=== PATIENT | male | born 1965 | race Two or more races ===

== ENCOUNTER 2020-11-29 07:59 | Day surgery (SDC) | payer OTHER ==
[~2020-11-29] VITALS: Ht 170.2 cm; Wt 70.5 kg
[~2020-11-29 07:59] MED LIST: NORCO 5-325 TA1 EACH PO
--- NOTE | 2020-11-29 09:21 | NUR ---
11/29/20 0921 Sirisha Nam 0917 PATIENT ARRIVES TO PACU SLEEPING, AWAKENS WITH VERBAL STIMULI, BACK TO SLEEP WHEN NOT STIMULATED. RESP EVEN AND UNLABORED, OXYGEN TURNED OFF ON ARRIVAL TO PACU. ROOM AIR SATS >95%.
--- NOTE | 2020-11-29 12:12 | OR ---
[facility] [address] [place], [place] [address] Signed DATE OF OPERATION: 11/29/2020 SURGEON: Christal Michael MD PREOPERATIVE DIAGNOSES: 1. History of Fontenot's esophagus, status post Hill posterior gastropexy, 2007. 2. Episode of flank pain in August (now resolved). POSTOPERATIVE DIAGNOSES: 1. Fontenot's esophagus from 28 to 38 cm. No evidence of stricture, nodularity, or neoplasm. 2. Intact optimal flap valve status post Hill repair. PROCEDURE: Esophagogastroduodenoscopy with biopsy. ANESTHESIA: Intravenous sedation, fentanyl 100 mcg and Versed 3 mg. INDICATION: This 55-year-old [place] man is well known to me from the past and a patient of Dr. Ambrose. He had intractable reflux and Ofntenot's esophagus and underwent Hill posterior gastropexy by me 13 years ago. He has had no reflux problem since that time. In August, he had an episode of rather significant interscapular and flank pain, which was quite problematic to him. He did take a PPI for a short period which may or may not have helped him. He has no associated dysphagia and no symptoms currently. It is noted that he did have Fontenot's esophagus in the past and on that basis alone, upper endoscopy is indicated for surveillance and also to characterize the symptoms he had in August. The risks of bleeding, infection, and perforation related to upper endoscopy reviewed with him. He understands and wished to proceed. FINDINGS: The flap valve was optimal. There was no evidence of hiatal hernia whatsoever. The stomach and duodenum appeared normal. CLOtest was negative 15 minutes postprocedure. He did have indeed obvious Fontenot's esophagus extending from 28 cm from the incisors to approximately 38 cm from the incisors. Multiple biopsies were obtained there. There was no sign of nodularity to Fontenot's segment. More proximal esophagus was normal in appearance. DESCRIPTION OF PROCEDURE: Electronically Signed By: CHRISTAL MICHAEL MD 11/29/20 1212 PATIENT NAME: TANO LEE OPERATIVE REPORT DATE OF : 63 REPORT #: [id number] PHYSICIAN: CHRISTAL MICHAEL MD PCP: MITCHELL AMBROSE MD REPORT IS CONFIDENTIAL AND NOT TO BE RELEASED WITHOUT AUTHORIZATION [facility] [address] [place], [place] [address] Signed The patient was brought to the endoscopy suite and placed in lateral decubitus position. Given intravenous sedation to the point of slurred speech and nystagmus, topical lidocaine hypopharyngeal anesthesia has been administered. A bite block was placed. An Olympus video upper endoscope was passed in the hypopharynx. The vocal cords appeared normal. The scope was advanced to the esophagus. It appeared entirely normal until approximately 28 cm from the incisors where obvious transition to Fontenot's esophagus was noted. The scope was passed beyond the GE junction into the stomach. The rugal folds were normal. Antral motility was normal. Pylorus was normal. Scope was passed through into the duodenum, which was normal. Biopsies were taken of the duodenum. The scope was withdrawn and biopsies then taken of the antrum for both RAMOAN and pathologic testing. Retroflexed view was undertaken showing optimal flap valve following Hill posterior gastropexy. The scope was straightened withdrawn. A biopsy was then taken of the segment of Fontenot's at varying length throughout the segment. None of the areas appeared particular problematic that clearly represent Fontenot's epithelium. The scope was withdrawn and remaining esophagus was normal. The patient was taken to the recovery room in good condition. CONCLUDING DIAGNOSIS: Fontenot's esophagus 28-38 cm without sign of abnormality otherwise. Optimal flap valve. No clinical reflux. PLAN: We will check his pathology report and review a strategy for surveillance going forward, specifically to assess for dysplasia, which is unlikely. He is not taking any PPI medication now nor would I recommend that he do so. MD LEVON Palmer/MODL /[id number] cc: Mitchell Ambrose MD Copies: MITCHELL AMBROSE MD Electronically Signed By: CHRISTAL MICHAEL MD 11/29/20 121 PATIENT NAME: TANO LEE OPERATIVE REPORT DATE OF : 63 REPORT #: [id number] PHYSICIAN: CHRISTAL MICHAEL MD PCP: MITCHELL AMBROSE MD REPORT IS CONFIDENTIAL AND NOT TO BE RELEASED WITHOUT AUTHORIZATION [facility] [address] [place] [address] Signed ~ Electronically Signed By: CHRISTAL MICHAEL MD 11/29/20 1212 PATIENT NAME: TANO LEE EGNAR OPERATIVE REPORT DATE OF : 63 REPORT #: [id number] PHYSICIAN: CHRISTAL MICHAEL MD PCP: MITCHELL AMBROSE MD REPORT IS CONFIDENTIAL AND NOT TO BE RELEASED WITHOUT AUTHORIZATION
--- NOTE | 2020-12-02 17:43 | PATH ---
[facility] [address] [place], [place] [address] Signed SPECIMEN(S): A DUODENAL BIOPSY SPECIMEN(S): B ANTRUM/PYLORUS BIOPSY SPECIMEN(S): C LOWER ESOPHAGEAL BIOPSY SPECIMEN SOURCE: A. DUODENAL BIOPSY B. ANTRUM/PYLORUS BIOPSY C. LOWER ESOPHAGEAL BIOPSY CLINICAL HISTORY: Esophagogastroduodenoscopy. History of hiatal hernia, Fontenot's esophagus, Hill repair in 2007. Postop Dx: Fontenot's esophagus, 26-34 cm. MICROSCOPIC DESCRIPTION: Histologic sections of all submitted blocks are examined by light microscopy. These findings, together with the gross examination, support the pathologic diagnosis. FINAL PATHOLOGIC DIAGNOSIS: A. Duodenum, biopsy: - Duodenal mucosa with mild peptic injury. B. Stomach, antrum/pylorus, biopsy: - Gastric oxyntic mucosa with no significant pathologic changes. - Negative for Helicobacter pylori with HE stains. C. Esophagus, lower, biopsy: - Inflamed glandular mucosa with intestinal metaplasia; no dysplasia identified. BRP:caw:C2NR GROSS DESCRIPTION: Three specimens are received in three containers, labeled "MT." A. The specimen, labeled "MT, duodenal biopsy," is received in formalin and consists of two fox soft tissue fragments that measure 0.1-0.2 cm in greatest dimension. The specimen is entirely submitted in cassette (A1). B. The specimen, labeled "MT, antrum biopsy," is received in formalin and consists of one fox soft tissue fragment that measures 0.2 cm in greatest dimension. The specimen is entirely submitted in cassette (B1). C. The specimen, labeled "MT, lower esophagus biopsy," is received in formalin and consists of five fox soft tissue fragments that measure 0.1-0.2 cm in greatest dimension. The specimen is entirely PATIENT NAME: TANO LEE PATHOLOGY DATE OF : 63 REPORT #: [id number] PHYSICIAN: GREG PATHOLOGY PCP: MITCHELL SHIN MD REPORT IS CONFIDENTIAL AND NOT TO BE RELEASED WITHOUT AUTHORIZATION [facility] [address] [place], [place] [address] Signed submitted in cassette (C1). JS (under the direct supervision of a pathologist) The Gross Description was prepared using a voice recognition system. The report was reviewed for accuracy; however, sound-alike word errors, addition and/or deletions may occur. If there is any question about this report, please contact Client Services. PERFORMING LABORATORY: The technical component was performed by [employer] [address] (Supplier Diversity Director: Amy Chaudhry MD; CLIA# [id number]). Professional interpretation was performed by [facility], [address] [address] (CLIA# [id number]). Diagnostician: Margarito Ornelas MD Pathologist Electronically Signed 12/02/2020 Copies: ~ PATIENT NAME: TANO LEE PATHOLOGY DATE OF : 63 REPORT #: [id number] PHYSICIAN: GREG PAULSON PCP: MITCHELL SHIN MD REPORT IS CONFIDENTIAL AND NOT TO BE RELEASED WITHOUT AUTHORIZATION
== END 2020-11-29 10:00 | disposition home or self-care (01) ==
LOC: OPS 07:59 → DS 08:03 → OPS 08:45 → DS 08:45 → OPS 10:00
PROVIDERS: ATTEND Surgery
PROC: 0DB98ZZ Excision of Duodenum, Via Natural or Artificial Opening Endoscopic (ICD-10-PCS; principal; 2020-11-29 08:45)
DX: K22.70 Barrett's esophagus without dysplasia (principal); Z98.890 Other specified postprocedural states; K20.90 Esophagitis, unspecified without bleeding
CPT/HCPCS: 99153; G0500; J2250; J3010; J7121

== ENCOUNTER 2022-01-13 13:01 | Day surgery (SDC) | payer OTHER ==
[~2022-01-13] VITALS: Ht 170.2 cm; Wt 71.5 kg
--- NOTE | ~2022-01-13 | OR ---
[facility] [address] [place], [place] [address] Draft DATE OF OPERATION: 01/13/2022 SURGEON: Christal Michael MD PREOPERATIVE DIAGNOSIS: Colon screening. POSTOPERATIVE DIAGNOSES: 1. Sigmoid polyp (excised). 2. External hemorrhoidal changes. PROCEDURE: Total colonoscopy to cecum with cold snare polypectomy x1 with application of hemoclip. ANESTHESIA: Intravenous sedation. Fentanyl 100 mcg and Versed 6 mg. INDICATION: This is a 56-year-old man is a patient of Dr. Yolette Castellanos well known to me from the past. He underwent Hill repair for intractable gastroesophageal reflux in 2007. He had colonoscopy about that time as well, which was normal. He is here for a screening colonoscopy. He understands the risks of bleeding, infection, and perforation. He has no symptoms of bleeding, diarrhea, or constipation and no known family history of colon cancer. Notably, he does have what he perceives as possible external hemorrhoidal nodularity and wishes that to be evaluated as well. FINDINGS: External anorectal examination showed moderately enlarged external hemorrhoid. There was no sign of thrombosis. No sign of neoplasm in any way. The remaining colon was well prepped and a sessile polyp at 15 cm was noted, which was excised with cold snare polypectomy technique. Application of hemoclips was applied as well. DESCRIPTION OF PROCEDURE: The patient was brought to the endoscopy suite and placed in lateral decubitus position given intravenous sedation to the point of slurred speech and nystagmus. Digital rectal examination and inspection showed external hemorrhoidal change. An Olympus video colonoscope was passed in the rectum and manipulated throughout the colon ultimately intubating the cecum itself. The ileocecal valve and appendiceal orifice were normal. The scope was withdrawn from that point. Examination throughout showed no sign of abnormality until approximately 15-20 cm from the anal verge, where a sessile polyp was PATIENT NAME: TANO SUERO OPERATIVE REPORT DATE OF : 63 REPORT #: [id number] PHYSICIAN: CHRISTAL MICHAEL MD PCP: YOLETTE CASTELLANOS MD REPORT IS CONFIDENTIAL AND NOT TO BE RELEASED WITHOUT AUTHORIZATION [facility] [address] [place], [place] [address] Draft noted. This was excised with cold snare technique. Application of hemoclip for hemostasis was undertaken. The scope was further withdrawn. Retroflexed view was normal. Scope was removed. Reinspection of the anorectum showed external hemorrhoidal change. No sign of thrombosis. No sign of worrisome neoplasm in any way. PLAN: We would recommend repeat colonoscopy in three years based on the polyp if it is proved to be adenoma. If hyperplastic, can go longer of course. As regards external hemorrhoidal disease, if he wishes external hemorrhoidal excision could be undertaken. MD LEVON Palmer/ZACK /[id number] cc: Yolette Castellanos MD Copies: YOLETTE CASTELLANOS DMD ~ PATIENT NAME: ROSA ZHUQUETANO [address] OPERATIVE REPORT DATE OF : 63 REPORT #: [id number] PHYSICIAN: CHRISTAL MICHAEL MD PCP: YOLETTE CASTELLANOS MD REPORT IS CONFIDENTIAL AND NOT TO BE RELEASED WITHOUT AUTHORIZATION
[~2022-01-13 13:01] MED LIST changes: +DICLOFENAC SOD100 MG PO; +OMEGA 3 1,0001 EACH PO; +OMEPRAZOLE20 MG PO; +VITAMIN D21250 MCG PO
--- NOTE | 2022-01-13 14:53 | NUR ---
01/13/22 1453 Sheets,Janie 1449 PT ARRIVED TO PACU ON 2L NC, PT ASLEEP AND SMALL AMOUNT OF SNORING NOTED.
--- NOTE | 2022-01-14 10:53 | PATH ---
[facility] [address] [place], [place] [address] Signed SPECIMEN(S): A SIGMOID POLYP AT 15 CM SPECIMEN SOURCE: A. SIGMOID POLYP AT 15 CM CLINICAL HISTORY: Pre: Screening colonoscopy. Post: Sigmoid polyp, external hemorrhoid. FINAL PATHOLOGIC DIAGNOSIS: Colon, sigmoid at 15 cm, polypectomy: - Tubular adenoma. BRP:cml:C2NR MICROSCOPIC EXAMINATION: Histologic sections of all submitted blocks are examined by light microscopy. These findings, together with the gross examination, support the pathologic diagnosis. GROSS DESCRIPTION: The specimen, labeled "MT, 1," and designated on the requisition "sigmoid polypectomy at 15 cm," is received in formalin and consists of one pink to red-brown, polypoid piece of tissue (0.7 cm in greatest dimension). The specimen is submitted entirely in cassette (A1). AC (under the direct supervision of a pathologist) The Gross Description was prepared using a voice recognition system. The report was reviewed for accuracy; however, sound-alike word errors, addition and/or deletions may occur. If there is any question about this report, please contact Client Services. PERFORMING LABORATORY: The technical component was performed by [facility], [address] [place] [address] (CLIA# [id number]). [facility], [address] [address] (CLIA# [id number]). Diagnostician: Margarito Ornelas MD Pathologist Electronically Signed 01/14/2022 PATIENT NAME: TANO SUERO PATHOLOGY DATE OF : 63 REPORT #: [id number] PHYSICIAN: GREG PATHOLOGY PCP: YOLETTE CASTELLANOS MD REPORT IS CONFIDENTIAL AND NOT TO BE RELEASED WITHOUT AUTHORIZATION [address] [address] Signed Copies: ~ PATIENT NAME: TANO SUERO PATHOLOGY DATE OF : 63 REPORT #: [id number] PHYSICIAN: [facility] PCP: YOLETTE CASTELLANOS MD REPORT IS CONFIDENTIAL AND NOT TO BE RELEASED WITHOUT AUTHORIZATION
== END 2022-01-13 15:44 | disposition home or self-care (01) ==
LOC: OPS 13:01 → DS 13:09 → OPS 14:00
PROVIDERS: ATTEND Surgery
PROC: 0DBN8ZX Excision of Sigmoid Colon, Via Natural or Artificial Opening Endoscopic, Diagnostic (ICD-10-PCS; principal; 2022-01-13 14:00)
DX: Z12.11 Encounter for screening for malignant neoplasm of colon (principal); D12.5 Benign neoplasm of sigmoid colon; K44.9 Diaphragmatic hernia without obstruction or gangrene; Z87.19 Personal history of other diseases of the digestive system
CPT/HCPCS: J2250; J3010; J7121

== ENCOUNTER 2025-04-06 07:00 | Day surgery (SDC) | payer OTHER ==
[~2025-04-06] VITALS: Ht 170.2 cm; Wt 73.0 kg
--- NOTE | ~2025-04-06 | OR ---
[facility] [address] [place], [place] [address] Draft DATE OF OPERATION: 04/06/2025 SURGEON: Christal Michael MD PREOPERATIVE DIAGNOSES: 1. History of Fontenot's esophagus. 2. History of Hill posterior gastropexy in 2007. 3. History of tubular adenoma, right colon 2021. POSTOPERATIVE DIAGNOSES: 1. Fontenot's esophagus extending from 28 cm to 34 cm. 2. Intact flap valve. 3. Normal-appearing colon. PROCEDURES: 1. Esophagogastroduodenoscopy with biopsy. 2. Total colonoscopy to cecum. ANESTHESIA: Intravenous sedation fentanyl 150 mcg and Versed 6 mg. INDICATION: This 59-year-old man is a patient of Dr. Yolette Castellanos. He is known to me from the past having been diagnosed with Fontenot's epithelium in 2007 and subsequent performance of anti-reflux operation of Hill posterior gastropexy (reconstruction of GE junction with posterior gastropexy and intraoperative manometrics). He last underwent upper endoscopy in 2007. He currently has no symptoms of dysphagia, reflux, or other abnormality. Additionally, he underwent colonoscopy in 2021 confirming a tubular adenoma. He has no family history of colon or esophageal cancer that he knows of. He is admitted at this time to undergo upper endoscopy and colonoscopy. He understands the risk of bleeding, infection, and perforation. FINDINGS: Upper endoscopy confirmed Fontenot's epithelium extending from approximately 28 to 38 cm. There is no evidence of neoplastic change, stricture, or other issue. The flap valve from prior reconstruction was fully intact. Stomach and duodenum were normal. CLOtest was negative. PATIENT NAME: TANO SUERO OPERATIVE REPORT DATE OF : 63 REPORT #: [id number] PHYSICIAN: CHRISTAL MICHAEL MD PCP: YOLETTE CASTELLANOS MD REPORT IS CONFIDENTIAL AND NOT TO BE RELEASED WITHOUT AUTHORIZATION [facility] [address] [place], [place] [address] Draft On colonoscopy, the prep was good. Complete colonoscopy was under to cecum which was normal. DESCRIPTION OF PROCEDURE: The patient was brought to the endoscopy suite and given topical lidocaine hypopharyngeal anesthesia, placed in lateral decubitus position. He was given intravenous sedation to the point of slurred speech and nystagmus with full cardiopulmonary monitoring. A bite block was placed. An Olympus video upper endoscope was passed in the hypopharynx. Vocal cords appeared normal. Scope was advanced to the esophagus without problem throughout its length that appeared normal though the distal portion, did show Fontenot's epithelium. Scope was passed in the stomach which was insufflated with air. Rugal folds were normal. Antral motility was normal. The pylorus was normal. The scope was passed through the pylorus into the duodenum, which was normal. Biopsies were taken of the duodenum and subsequently scope was withdrawn and biopsies taken of the antrum for both RAMONA and pathologic testing. Retroflexed view was undertaken showing an intact flap valve from previous reconstruction. The scope was withdrawn and multiple biopsies were taken of the distal esophagus. More proximal portion showing normal mucosa was at 28 cm. This area was biopsied as well. Further withdrawal of scope showed no other abnormality. Plans were then made for colonoscopy. Digital rectal examination was normal including the prostate. An Olympus video colonoscope was passed in the rectum and manipulated throughout the colon ultimately intubating the cecum itself. The ileocecal valve and appendiceal orifice were normal. The scope was withdrawn from that point. Examination showed no sign of abnormality specifically no polyps, diverticular formation, colitis, or cancer. Retroflexed view was normal as well. The scope was removed. The patient was taken to the recovery room in good condition. CONCLUDING DIAGNOSES: 1. Persistent Fontenot's epithelium without worrisome findings, intact flap valve and no clinical evidence of dysphagia or reflux. Would recommend repeat upper endoscopy in three years based on current guidelines. 2. Normal colon to cecum. No evidence of recurrent or persistent polyp. PLAN: Recommend repeat colonoscopy in 10 years, sooner if clinically indicated. PATIENT NAME: TANO SUERO OPERATIVE REPORT DATE OF : 63 REPORT #: [id number] PHYSICIAN: CHRISTAL MICHAEL MD PCP: YOLETTE CASTELLANOS MD REPORT IS CONFIDENTIAL AND NOT TO BE RELEASED WITHOUT AUTHORIZATION [address] [address] Draft MD LEVON Palmer/ZACK /[id number] cc: Yolette Castellanos MD Copies: EMANUEL,YOLETTE D DMD ~ PATIENT NAME: TANO SUERO DIMAS OPERATIVE REPORT DATE OF : 63 REPORT #: [id number] PHYSICIAN: CHRISTAL MICHAEL MD PCP: YOLETTE CASTELLANOS MD REPORT IS CONFIDENTIAL AND NOT TO BE RELEASED WITHOUT AUTHORIZATION
[~2025-04-06 07:00] MED LIST changes: +IBLOOD GLUCOSE TEST STRIP 1 EA TEST VI PRN; +LACTATED RINGER'S 1,000 ML IV SCH; +LIDOCAINE HCL 1% 5 ML SDV INJ ONE; +LIDOCAINE HCL 4% 50 ML BTL TOP SCH; +MIDAZOLAM HCL 5 MG/5 ML VIAL IV PRN; +fentaNYL citrate 100 MCG/2 ML VIAL IV PRN
[2025-04-06 07:20] VITALS: BP 112/72
[2025-04-06] MEDS ORDERED: fentaNYL citrate 100 MCG/2 ML VIAL ONE (08:14)
[2025-04-06] MEDS ORDERED: MIDAZOLAM HCL 5 MG/5 ML VIAL ONE (08:14)
--- NOTE | 2025-04-06 09:30 | NUR ---
04/06/25 0930 Saira Hawley 0917-PT ARRIVES TO PACU, VIA STRETCHER, RESTING ON LT SIDE, PASSING GAS. PT IS NOT RESPSONSIVE TO TACTILE OR VERBAL STIMULI, VSS ON 3L VIA NC, RR EVEN AND UNLABORED. 0925-PT RESPONSIVE TO TACTILE AND VERBAL STIMULI, BUT FALLS BACK TO SLEEP EASILY, TITRATED TO RA, VS REMAIN STABLE.
[2025-04-06 10:10] VITALS: BP 122/89
--- NOTE | 2025-04-10 12:09 | PATH ---
[facility] [address] [place], [place] [address] Signed SPECIMEN(S): A DUODENUM BIOPSY SPECIMEN(S): B ANTRUM/PYLORUS BIOPSY SPECIMEN(S): C LOWER ESOPHAGUS BIOPSY SPECIMEN(S): D ESOPHAGUS BIOPSY, 26 CM SPECIMEN SOURCE: A. DUODENUM BIOPSY B. ANTRUM/PYLORUS BIOPSY C. LOWER ESOPHAGUS BIOPSY D. ESOPHAGUS BIOPSY, 26 CM CLINICAL HISTORY: History of tubular adenoma, good flap, persistent Fontenot's. A/B) biopsy, C) biopsy. Distal esophagus-Fontenot's. D) biopsy FINAL PATHOLOGIC DIAGNOSIS: A. Duodenum biopsy: - Benign duodenal mucosa, negative for specific diagnostic abnormality. B. Antrum/pylorus biopsy: - Benign gastric mucosa with focal slight chronic inflammation. - Negative for evidence of Helicobacter organisms on routine HE-stained sections. C. Lower esophagus biopsy: - Glandular mucosa with focal specialized intestinal (goblet cell) metaplasia, negative for dysplasia. D. Esophagus biopsy at 26 cm: - Benign esophageal epithelium, negative for increased epithelial eosinophils. - Negative for glandular mucosa. JVR:nico MICROSCOPIC EXAMINATION: Histologic sections of all submitted blocks are examined by light microscopy. These findings, together with the gross examination, support the pathologic diagnosis. GROSS DESCRIPTION: A. The specimen, labeled and designated "Manuel, duodenum biopsy," is received in formalin and consists of two fox soft tissue fragments, ranging from 0.2-0.4 cm. Entirely submitted in (A1). B. The specimen, labeled and designated "Lee, antrum/pylorus biopsy," is received in formalin and consists of two fox soft tissue fragments, ranging PATIENT NAME: TANO SUERO PATHOLOGY DATE OF : 63 REPORT #: [id number] PHYSICIAN: TOMeJamming LORENE PCP: YOLETTE CASTELLANOS MD REPORT IS CONFIDENTIAL AND NOT TO BE RELEASED WITHOUT AUTHORIZATION [facility] [address] [place], [place] [address] Signed from 0.3-0.4 cm. Entirely submitted in (B1). C. The specimen, labeled and designated "Lee, lower esophagus biopsy," is received in formalin and consists of three fox soft tissue fragments, ranging from 0.2-0.4 cm. Entirely submitted in (C1). D. The specimen, labeled and designated "Lee, esophagus biopsy, 26 cm," is received in formalin and consists of two fox soft tissue fragments, ranging from 0.3-0.4 cm. Entirely submitted in (D1). AB (under the direct supervision of a pathologist) The Gross Description was prepared using a voice recognition system. The report was reviewed for accuracy; however, sound-alike word errors, addition and/or deletions may occur. If there is any question about this report, please contact Client Services. PERFORMING LABORATORY: Technical component was performed by [facility] [facility], [address] [place] [id number] (CLIA# [id number]). Professional interpretation was performed by [facility], [address] [place] [id number] (CLIA#: [id number]). Diagnostician: Sammy Nevarez MD Pathologist Electronically Signed 04/10/2025 Copies: ~ PATIENT NAME: LEE TANO BRICEÑO PATHOLOGY DATE OF : 63 REPORT #: [id number] PHYSICIAN: GREG PATHOLOGY PCP: YOLETTE CASTELLANOS MD REPORT IS CONFIDENTIAL AND NOT TO BE RELEASED WITHOUT AUTHORIZATION
== END 2025-04-06 10:18 | disposition home or self-care (01) ==
LOC: DS 07:00 → OPS 07:00 → DS 07:30 → OPS 08:25
PROVIDERS: ATTEND Surgery
PROC: 0DJD8ZZ Inspection of Lower Intestinal Tract, Via Natural or Artificial Opening Endoscopic (ICD-10-PCS; 2025-04-06)
PROC: 0DB68ZX Excision of Stomach, Via Natural or Artificial Opening Endoscopic, Diagnostic (ICD-10-PCS; 2025-04-06)
PROC: 0DB98ZX Excision of Duodenum, Via Natural or Artificial Opening Endoscopic, Diagnostic (ICD-10-PCS; principal; 2025-04-06 08:25)
PROC: 0DB38ZX Excision of Lower Esophagus, Via Natural or Artificial Opening Endoscopic, Diagnostic (ICD-10-PCS; 2025-04-06 08:25)
DX: K22.70 Barrett's esophagus without dysplasia (principal); K29.50 Unspecified chronic gastritis without bleeding; K62.5 Hemorrhage of anus and rectum; Z86.0100 Personal history of colon polyps, unspecified; Z79.899 Other long term (current) drug therapy
CPT/HCPCS: 99153; G0500; J2250; J3010; J7121

== ENCOUNTER 2025-07-26 08:55 | Day surgery (SDC) | payer OTHER ==
[2025-07-26] VITALS (10 sets, daily range): BP systolic 127–153; BP diastolic 70–85
[~2025-07-26] VITALS: Ht 170.2 cm; Wt 71.0 kg
[~2025-07-26 08:55] MED LIST changes: +CEFAZOLIN SODIUM 2 GM in SODIUM CHLORIDE 0.9% 100 ML IV SCH; -LIDOCAINE HCL 4% 50 ML BTL TOP SCH; -MIDAZOLAM HCL 5 MG/5 ML VIAL IV PRN; +SODIUM CHLORIDE 0.9% 100 ML IV ONE; -fentaNYL citrate 100 MCG/2 ML VIAL IV PRN
[2025-07-26] MEDS ORDERED: LIDOCAINE HCL 2% 5 ML SDV ONE (10:38)
[2025-07-26] MEDS ORDERED: MIDAZOLAM HCL 2 MG/2 ML VIAL ONE (10:38)
[2025-07-26] MEDS ORDERED: BUPIVACAINE 0.75% IN DEXTROSE 2 ML AMP ONE (10:38)
[2025-07-26] MEDS ORDERED: fentaNYL citrate 100 MCG/2 ML VIAL ONE (10:38)
[2025-07-26] MEDS ORDERED: fentaNYL citrate 50 MCG/ML SDV IV PRN (12:15)
[2025-07-26] MEDS ORDERED: HYDROmorphone HCL 1 MG/ML SYR IV PRN (12:15)
[2025-07-26] MEDS ORDERED: PROCHLORPERAZINE EDISYLATE 10 MG/2 ML VIAL IV PRN (12:15)
[2025-07-26] MEDS ORDERED: NALOXONE HCL 0.4 MG SYR IV PRN ×2 (12:15→13:00)
[2025-07-26] MEDS ORDERED: IBLOOD GLUCOSE TEST STRIP 1 EA TEST VI PRN (12:15)
--- NOTE | 2025-07-26 12:34 | NUR ---
07/26/25 Ana Maria3 Fabby Patel 1229-PATIENT ARRIVED TO PACU ON RA RR EVEN. PATIENT HAS EYES CLOSED REACTIVE TO VERBAL STIMULI DROWSY. RA 97% RR EVEN. SR HR 60'S. IVF INFUSING. SEMI LEONE POSITION
[2025-07-26] MEDS ORDERED: TYLENOL EXTRA500 MG PO (12:58)
[2025-07-26] MEDS ORDERED: MOTRIN IB200 MG PO (12:58)
[2025-07-26] MEDS ORDERED: DILAUDID4 MG PO (12:59)
[2025-07-26] MEDS ORDERED: METAMUCIL FIBE3.4 GM PO (12:59)
[2025-07-26] MEDS ORDERED: ACETAMINOPHEN 500 MG TAB PO PRN (13:00)
[2025-07-26] MEDS ORDERED: IBUPROFEN 600 MG TAB PO PRN (13:00)
[2025-07-26] MEDS ORDERED: LACTATED RINGER'S 1,000 ML IV SCH (13:00)
--- NOTE | 2025-07-26 13:33 | NUR ---
1320: PATIENT BACK IN DAY SURGERY ROOM FROM PACU. DENIES PAIN. VS CHECKED. IV SITE WNL. SURGICAL SITE WNL. ABD PAD TO SURGICAL SITE WITH SMALL AMOUNT OF RED DRAINAGE. GIVEN ICE WATER AND APPLESAUCE. AT BEDSIDE. CALL LIGHT WITHIN REACH.
--- NOTE | 2025-07-26 13:58 | NUR ---
1400- PT IS RESTING IN BED WITH AT BEDSIDE. VITAL SIGNS OBTAINED. RN INFUSING. CALL LIGHT IN REACH. BED IS LOCKED IN THE LOWEST POSITON. ALL PT QUESTIONS AND CONCERNS ANSWERED. PT DENIES PAIN AND NAUSEA. PT REPORTS SOME "PRESSURE DOWN THERE". ABD PAD SHOWS SOME RED DRAINAGE. PT LEFT ROOM TO TAKE PHYSICAL PRESCRIPTION TO THE PHARMACY AT THIS TIME. LR INFUSING. PT HAS HAS APPLE SAUCE, CRACKERS AND DRANK WATER.
--- NOTE | 2025-07-26 15:31 | OR ---
[facility] [address] [place], [place] [address] Signed DATE OF OPERATION: 07/26/2025 SURGEON: Christal Michael MD PREOPERATIVE DIAGNOSIS: Symptomatic external hemorrhoidal disease. POSTOPERATIVE DIAGNOSES: 1. Symptomatic external hemorrhoid disease. 2. Additional internal and external hemorrhoidal disease, left lateral and right anterior aspect. PROCEDURES: 1. Exam under anesthesia. 2. Excision of internal and external hemorrhoids x2 and external hemorrhoids x2.. ANESTHESIA: Saddle block with IV sedation, Miguel Menard, BUCKET HOOKER and local 10 mL of 0.25% Marcaine with epinephrine. INDICATION: This 59-year-old man is a patient of Yolette Castellanos MD. He has recently undergone colonoscopy and was noted additionally to have external hemorrhoids, which were problematic for him for perianal hygiene and so on. He has no current episodes of rectal bleeding. He is admitted to undergo external hemorrhoidectomy and other indicated procedures depending on clinical findings. He understands risk of bleeding, infection, and perforation related to hemorrhoidectomy and wished to proceed. FINDINGS: There definitely were external hemorrhoidal components to the area, four in total. Two in particular were really internal and external hemorrhoidal areas including the left lateral and right anterior. These were excised more formally with internal and external hemorrhoidectomy. The external hemorrhoidal skin was excised elsewhere in the right anterior and the right posterior aspect. DESCRIPTION OF PROCEDURE: The patient was brought to the operating room after undergoing saddle block anesthesia and placed in prone bi-knife position and given intravenous sedation. Preoperative antibiotics were given. Sequential compression device stockings used and heparin subcutaneously administered. In the prone bi-knife position, the buttocks were taped Electronically Signed By: CHRISTAL MICHAEL MD 07/26/25 1531 PATIENT NAME: TANO SUERO OPERATIVE REPORT DATE OF : 63 REPORT #: [id number] PHYSICIAN: CHRISTAL MICHAEL MD PCP: YOLETTE CASTELLANOS MD REPORT IS CONFIDENTIAL AND NOT TO BE RELEASED WITHOUT AUTHORIZATION [facility] [address] [place], [place] [address] Signed apart. Examination of the perianal area undertaken. External hemorrhoidal changes were noted quite obviously. The area was shaved and prepared with a Betadine based solution. Two finger anal dilation was undertaken. A rectal retractor was placed. The left lateral hemorrhoidal complex was more than just an external hemorrhoid as was initially thought. In fact it extended proximally and had a significant internal component. The root of the hemorrhoid was secured with a 2-0 chromic tie and the hemorrhoid elevated with a Bahena clamp and excision undertaken with meticulous care using electrocautery. It was amputated and the mucosa reapproximated with running 2-0 chromic leaving external drainage area. A similar excision was undertaken of the right anterior aspect as this was the internal hemorrhoid as much as an external one though that was not previously obvious. Two additional hemorrhoids were taken, the right posterior and right lateral, which was dominantly external hemorrhoidal tissue. They were additionally closed with running chromic, leaving drainage area externally. A 10 mL of 0.25% Marcaine with epinephrine was injected locally. A peripad was applied. He was returned to the supine position, ultimately taken to recovery room in good condition. Blood loss was minimal. Complications none. Christal Michael MD JM/MODL /[id number] cc: Yolette Castellanos MD Copies: YOLETTE CASTELLANOS DMD ~ Electronically Signed By: CHRISTAL MICHAEL MD 07/26/25 1531 PATIENT NAME: TANO SUERO OPERATIVE REPORT DATE OF : 63 REPORT #: [id number] PHYSICIAN: CHRISTAL MICHAEL MD PCP: YOLETTE CASTELLANOS MD REPORT IS CONFIDENTIAL AND NOT TO BE RELEASED WITHOUT AUTHORIZATION
--- NOTE | 2025-07-26 16:00 | NUR ---
1440- PT REQUESTING TO USE THE RESTROOM. PT WALKS WITH A STEADY AND EVEN GAIT. PT WAITING IN RESTROOM FOR 10 MINUTES TRYING TO VOID. PT IS ABLE TO RETURN TO ROOM SAFELY. 1500- PT UP TO THE RESTROOM TO ATTEMPT TO VOID. PT IN RESTROOM FOR OVER 20 MINUTES WITH RN CHECKING ON HIM OFF AND ON. PT IS UNABLE TO VOID. PT RETURNS TO ROOM SAFELY. 1540- PT BLADDER SCANNED AT THIS TIME. 612ML OF URINE NOTED FROM 3 SCANS. PT IS AWARE OF POSSIBILITY TO NEED CATHETER. DR. MICHAEL IS CALLED AT THIS TIME, WITH NO ANSWER. 1600- VITAL SIGNS OBTAINED. PT DENIES PAIN AND NAUSEA. PT IS SALINE LOCKED. CALL LIGHT IN REACH, BED IS LOCKED IN THE LOWEST POSITION. QUESTIONS AND CONCERNS OF PT AND ANSWERED AT THIS TIME.
[2025-07-26] MEDS ORDERED: TAMSULOSIN HCL 0.4 MG CAP PO ONE (16:15)
--- NOTE | 2025-07-26 17:20 | NUR ---
1520- VITAL SIGNS OBTAINED. PT DENIES PAIN AND NAUSEA. PT IS UP TO ATTEMPT TO VOID BEFORE THIS AND IS UNABLE. CALL LIGHT IN REACH. PT IS INDEPENDENT IN ROOM AND WALKING. PT IS STEADY ON HIS FEET. IS AT BEDSIDE. THEY ARE WATCHING TV TOGETHER.
--- NOTE | 2025-07-26 18:21 | NUR ---
1750 WILNER RN AND IVANA SAWYER IN ROOM TO DO SINGH CATH PER DR ORDER DUE TO URINE RETENTION. 16 ISRAELI SINGH CATH PLACED IN STERILE FASHION BY WILNER SAWYER. URINE RETURN NOTED. 10 MLS OF STERILE WATER PLACED INTO SINGH BALLOON. 600 MLS OR CLEAR YELLOW URINE NOTED AND STILL DRAINING. REPORT HANDED BACK OFF TO KANDIS SAWYER. PT BED LOW AND LOCKED AND CALL LIGHT WITHIN REACH.
[2025-07-26] MEDS ORDERED: LIDOCAINE 2% VISCOUS 6 ML SYR TOP ONE (18:30)
--- NOTE | 2025-07-26 18:50 | NUR ---
1630- PT IS UP TO THE RESTROOM. PT IS ABLE TO VOID 275ML OF CLEAR YELLOW URINE. PT IS BLADDER SCANNED AFTER RETURNING TO HIS ROOM AND RETAINING 460ML OF URINE. PT IS AWARE THAT IF HE IS UNABLE TO VOID TO EMPTY HIS BLADDER HE WILL NEED A CATHETER. 1635- FERNANDA CALLED AND UPDATED. FERNANDA IS WILLING TO GIVE PT MORE TIME TO TRY AND VOID. IF HE DOES NOT VOID BY 1800 THEN A SINGH CATH TO BE PLACED INDWELLING. 1650-PT ATTEMPTED TO VOID AGAIN, UNSUCCESSFUL. 1705- FERNANDA IS CALLED AND UPDATED ABOUT PT. SNIGH TO BE PLACED AND ADMISSION ORDER RECEIVED FOR PAIN MANAGEMENT AND URINE RETENTION. 181- PT REPORTS 9/10 PAIN. PAIN MEDICATION GIVEN, SEE EMAR. 1840-SINGH WAS PLACED BY OTHER RN'S. PT BLADDER EMPTIED AND 650ML OF CLEAR YELLOW URINE DRAINED. 184- PT IS TRANSFERED TO MED SURG. BEDSIDE REPORT GIVEN TO DIGNA MCGHEE. IS AT BEDSIDE. ALL QUESTIONS AND CONCERNS ANSWERED. SINGH IS DRAINING. IV IS LR LOCKED. CALL LIGHT IN REACH. BED IS LOCKED IN THE LOWEST POSITION. CARE TURNED OVER AT THIS TIME.
--- NOTE | 2025-07-26 19:15 | NUR ---
RECEIVED REPORT FROM DIGNA MCGHEE. PATIENT LAYING COMFORTABLY IN BED, RESPIRATIONS EVEN AND UNLABORED. PAD IS C/D/I, NO ACTIVE BLEEDING. PATIENT DENIES ANY CURRENT NEEDS, CALL LIGHT IN REACH
--- NOTE | 2025-07-26 20:44 | NUR ---
VS OBTAINED AND RECORDED. PATIENT REPORTS PAIN IS IMPROVING, RESPIRATIONS EVEN AND UNLABORED. NO ACTIVE BLEEDING FROM SURGICAL SITE. SINGH CARE COMPLETED. ASSESSMENT COMPLETED. NO NEEDS, CALL LIGHT IN REACH
--- NOTE | 2025-07-26 23:24 | NUR ---
ROUNDED ON PATIENT, PATIENT RESTING WITH EYES CLOSED, RESPIRATIONS EVEN AND UNLABORED. NO NEEDS, CPOX AT BEDSIDE. CALL LIGHT IN REACH
[2025-07-27 01:54] VITALS: BP 116/72
--- NOTE | 2025-07-27 01:57 | NUR ---
VS OBTAINED AND RECORDED. PATIENT RESTING, WOKE EASILY TO RN ENTERING ROOM. PATIENT DENIES ANY NEEDS, RESPIRATIONS EVEN AND UNLABORED. CALL LIGHT IN REACH
--- NOTE | 2025-07-27 03:37 | NUR ---
ROUNDED ON PATIENT, PATIENT RESTING WITH EYES CLOSED, RESPIRATIONS EVEN AND UNLABORED. NO NEEDS IDENTIFIED, CALL LIGHT IN REACH
[2025-07-27 05:24] VITALS: BP 110/68
--- NOTE | 2025-07-27 05:25 | NUR ---
UG DESIGNER OBTAINED VITALS AND I&O. SINGH EMPTIED AND ICE WATER REFILLED. PT STATES NO NEEDS AT THIS TIME. CALL LIGHT WITHIN REACH.
--- NOTE | 2025-07-27 05:36 | NUR ---
ROUNDED ON PATIENT, PATIENT IS REPORTING 4/10 PAIN WHICH HE STATES COMES AND GOES. HE STATES IT IS TOLERABLE, NO NEW BLEEDING NOTED ON PAD AT THIS TIME. PATIENT DENIES NEEDS, CALL LIGHT IN REACH
--- NOTE | 2025-07-27 07:23 | NUR ---
REPORT REC'D FROM DIGNA FUENTES. PT RESTING IN BED, DENIES C/O. CPOX IN USE, SPO2 98%, F/C DRAINING YELLOW URINE. PT DENIES PAIN. SIDERAILS UP X2, CALL JUNIOR IN REACH, BED IN LOW POSITION AND LOCKED.
--- NOTE | 2025-07-27 08:36 | NUR ---
PATIENT IN BED AT THIS TIME. FOOTWEAR SALES REPRESENTATIVE CHARTED HOURLY ROUNDS. CALL LIGHT WITHIN, NO FURTHER NEEDS.
--- NOTE | 2025-07-27 08:55 | NUR ---
PT F/C DC'D. PT PROVIDED URINAL AND INSTRUCTED TO CALL ONCE VOIDED FOR PVR. PT VERBALIZED UNDERSTANDING.
[2025-07-27] MEDS ORDERED: PSYLLIUM SEED 1 PKT PACKET PO SCH (09:00)
[2025-07-27] MEDS ORDERED: TAMSULOSIN HCL 0.4 MG CAP PO SCH (09:00)
--- NOTE | 2025-07-27 09:25 | NUR ---
F/U WITH PATIENT, PT NO VOID AT THIS TIME. PT PROVIDED FLUIDS. VERBALIZED UNDERSTANDING OF CALLING ONCE VOIDED AND WILL F/U WITH BLADDER SCAN FOR RETENTION.
--- NOTE | 2025-07-27 09:50 | NUR ---
MED REC COMPLETE
--- NOTE | 2025-07-27 10:40 | NUR ---
Spoke with Pt and he states he lives in [place] with his . He does not use any DME. Home has no steps. Pt denies financial or safety concerns. He will go home with his . Pt denies any needs. Mac catheter has been dcd.
[2025-07-27 10:53] VITALS: BP 123/77
--- NOTE | 2025-07-27 10:55 | NUR ---
PATIENT IN BED AT THIS TIME. WIRE INSPECTOR CHARTED VITALS AND I&O'S. CALL LIGHT WITHIN REACH, NO FURTHER NEEDS.
--- NOTE | 2025-07-27 11:01 | NUR ---
UR CLINICAL REVIEW: [facility] REVIEW MEETS EXTENDED STAY FOR HEMORRHOIDECTOMY WITH URINARY RETENTION AND NEED FOR PAIN CONTROL [facility] EXTENDED STAY 07/26/25 @ 1826 ORDER MATCHES REG NO AUTH REQUIRED FOR [facility] TO HOME ANTICIPATED 07/27/25 07/28/25
--- NOTE | 2025-07-27 11:35 | NUR ---
PT VOID 225ML CLEAR YELLOW URING, PVR 164/167/215. PT PROVIDED ADDITIONAL FLUIDS.
--- NOTE | 2025-07-27 11:45 | NUR ---
PT SECOND VOID 225ML, PVR 45/46. VM LEFT FOR DR. MICHAEL [phone]. PHARMACY NOTIFIED OF PENDING DISCHARGE.
[2025-07-27] MEDS ORDERED: RAPAFLO8 MG PO (12:23)
--- NOTE | 2025-07-27 12:45 | NUR ---
PT GIVEN DISCHARGE INSTRUCTIONS. PROVIDED SITZ BATH. RX CALLED TO PHARMACY. PT AND SPOUSE, NO QUESTIONS REGARDING INSTRUCTIONS, VERBALIZED UNDERSTANDING. PT ESCORTED OUT BY STAFF VIA W/C WITH ALL PERSONAL BELONGINGS.
--- NOTE | 2025-07-30 09:58 | PATH ---
[facility] [address] [place], [place] [address] Signed SPECIMEN(S): A LEFT LATERAL HEMORRHOIDAL COMPLEX SPECIMEN(S): B RIGHT POSTERIOR HEMORRHOID SPECIMEN(S): C RIGHT ANTERIOR HEMORRHOID SPECIMEN(S): D RIGHT LATERAL ACCESSORY HEMORRHOID SPECIMEN SOURCE: A. LEFT LATERAL HEMORRHOIDAL COMPLEX B. RIGHT POSTERIOR HEMORRHOID C. RIGHT ANTERIOR HEMORRHOID D. RIGHT LATERAL ACCESSORY HEMORRHOID CLINICAL HISTORY: External hemorrhoids FINAL PATHOLOGIC DIAGNOSIS: A. Left lateral hemorrhoidal complex: - Benign polypoid anal type mucosa with dilated hemorrhoidal vasculature. B. Right posterior hemorrhoid: - Benign polypoid anal mucosa with dilated hemorrhoidal vasculature. C. Right anterior hemorrhoid: - Benign polypoid anal mucosa with dilated hemorrhoidal vasculature. D. Right lateral accessory hemorrhoid: - Benign polypoid anal mucosa with dilated hemorrhoidal vasculature. JVR MICROSCOPIC EXAMINATION: Histologic sections of all submitted blocks are examined by light microscopy. These findings, together with the gross examination, support the pathologic diagnosis. GROSS DESCRIPTION: A. The specimen, labeled and designated "Rosa, left lateral hemorrhoidal complex," is received in formalin and consists of one rubbery portion of tissue measuring 1.9 x 1.6 x 1.1 cm. The tissue surface is wrinkled with a possible mucosa. The specimen is inked blue and sectioned. Sectioning reveals dilated blood vessels. Residential Specialist sections are submitted in cassette (A1). B. The specimen, labeled and designated "Rosa, right posterior hemorrhoid," is received in formalin and consists of one rubbery portion of tissue measuring 2.0 x 1.0 x 0.8 cm. The tissue surface is wrinkled with a possible mucosa. The specimen is inked green and sectioned. PATIENT NAME: TANO SUERO PATHOLOGY DATE OF : 63 REPORT #: [id number] PHYSICIAN: GREG PATHOLOGY PCP: YOLETTE CASTELLANOS MD REPORT IS CONFIDENTIAL AND NOT TO BE RELEASED WITHOUT AUTHORIZATION [facility] [address] [place], [place] [address] Signed Sectioning reveals a white fibrous clean-cut surface. There are no areas of hemorrhage or dilated blood vessels. Entirely submitted in cassette (B1). C. The specimen, labeled and designated "Jackson, right anterior hemorrhoid," is received in formalin and consists of one rubbery portion of tissue measuring 1.9 x 1.4 x 0.7 cm. The tissue surface is wrinkled with a possible mucosa. The specimen is inked black and sectioned. Sectioning reveals a white fibrous clean-cut surface. There are no areas of hemorrhage or dilated blood vessels. Entirely submitted in cassette (C1). D. The specimen, labeled and designated "Jackson, right lateral accessory hemorrhoid," is received in formalin and consists of one rubbery portion of tissue measuring 1.4 x 0.9 x 0.9 cm. The tissue surface is wrinkled with a possible mucosa. The specimen is inked blue and sectioned. Sectioning reveals dilated blood vessels. Entirely submitted in cassette (D1). AB (under the direct supervision of a pathologist) The Gross Description was prepared using a voice recognition system. The report was reviewed for accuracy; however, sound-alike word errors, addition and/or deletions may occur. If there is any question about this report, please contact Client Services. ADDITIONAL NOTES: Immunohistochemical and/or in situ hybridization studies if performed in this case included appropriate positive controls that reacted as expected. This test was developed and its performance characteristics determined by [facility]. It has not been cleared or approved by the U.S. Food and Drug Administration. The FDA has determined that such clearance or approval is not necessary. This test is used for clinical purposes. It should not be regarded as investigational or for research. [facility] is certified under the Clinical Laboratory Improvement Amendments of 1988 (CLIA) as qualified to perform high complexity clinical laboratory testing. PERFORMING LABORATORY: Technical component was performed by [facility], [address] [place] [id number] (CLIA# [id number]). Professional interpretation was performed by [facility] [place] [facility] - [address] [place] [address] (CLIA#: [id number]). PATIENT NAME: TANO SUERO PATHOLOGY DATE OF : 63 REPORT #: [id number] PHYSICIAN: GREG PAULSON PCP: YOLETTE CASTELLANOS MD REPORT IS CONFIDENTIAL AND NOT TO BE RELEASED WITHOUT AUTHORIZATION [facility] [address] [place] [address] Signed Diagnostician: Sammy Nevarez MD Pathologist Electronically Signed 07/30/2025 Copies: ~ PATIENT NAME: ROSA PHELANZQUEZTANO DIMAS PATHOLOGY DATE OF : 63 REPORT #: [id number] PHYSICIAN: GREG PATHOLOGY PCP: YOLETTE CASTELLANOS MD REPORT IS CONFIDENTIAL AND NOT TO BE RELEASED WITHOUT AUTHORIZATION
== END 2025-07-27 12:45 | disposition home or self-care (01) ==
LOC: DS 08:55 → MS 18:45 → DS 07-27 12:45
PROVIDERS: ATTEND Surgery
PROC: 06BY0ZC Excision of Hemorrhoidal Plexus, Open Approach (ICD-10-PCS; principal; 2025-07-26 11:15)
DX: K64.4 Residual hemorrhoidal skin tags (principal); K64.8 Other hemorrhoids; K44.9 Diaphragmatic hernia without obstruction or gangrene; L98.9 Disorder of the skin and subcutaneous tissue, unspecified; Z87.19 Personal history of other diseases of the digestive system; Z86.0101 Personal history of adenomatous and serrated colon polyps; Z90.49 Acquired absence of other specified parts of digestive tract
CPT/HCPCS: 00902; 51702; 51798; A9270; J0688; J2003; J2250; J2405; J2704; J3010; J7121